=== PATIENT | female | born 1995 | race African-American/Black ===

== ENCOUNTER 2020-01-31 09:44 | Emergency (ER) | payer MEDICAID ==
[~2020-01-31] VITALS: Ht 157.5 cm; Wt 96.2 kg
[2020-01-31 09:57] VITALS: Ht 157.5 cm; Wt 96.2 kg
[2020-01-31 11:00] LABS: CARBON DIOXIDE 25.3 mmol/L (21-32); CHLORIDE SERUM 104 mmol/L (98-107); CREATININE SERUM 0.7 mg/dL (0.6-1.0); GFR1 > 60 mL/min; GLUCOSE SERUM 88 mg/dL (74-106); POTASSIUM SERUM 3.9 mmol/L (3.5-5.1); SODIUM SERUM 139 mmol/L (136-145)
[2020-01-31 11:08] LABS: ALBUMIN 3.7 g/dL (3.4-5.0); ALKALINE PHOSPHATASE 61 U/L (46-116); ALT/SGPT 26 U/L (14-59); AST/SGOT 11 U/L (15-37); BILIRUBIN TOTAL 0.2 mg/dL (0.20-1.00); T4(THYROXINE) 7.2 ug/dL (4.7-13.3); TOTAL PROTEIN, SERUM 7.4 g/dL (6.4-8.2)
[2020-01-31 11:12] LABS: BASOPHIL % 0.1 % (0-2); PLATELET COUNT 180 x10^3mcL (130-400)
[2020-01-31 11:14] LABS: RED CELL DISTRIBUTION WIDTH 15.2 % (11.5-14.5)
[2020-01-31 11:46] VITALS: BP 120/64
== END 2020-01-31 11:46 | disposition home or self-care (01) ==
LOC: ED 09:44
PROVIDERS: Emergency Medicine
DX: N93.9 Abnormal uterine and vaginal bleeding, unspecified (principal); R10.9 Unspecified abdominal pain; M54.5 Low back pain